=== PATIENT | female | born 1960 | race Caucasian/White ===

== ENCOUNTER → 2016-08-07 | Day surgery (SDC) | payer BC ==
[2016-07-28 07:37] VITALS: Ht 167.6 cm; Wt 131.8 kg
[~2016-08-07] VITALS: Ht 167.6 cm; Wt 131.8 kg
[~2016-08-07] MED LIST: ACET1TAB84 PO; ALBU1AER9 INH; ATEN50TA8 PO; CLB/200 PO; LIDOCAINE HCL 2% 2 ML VIAL (20MG/ML) ONE; LISI10TA PO; POTA-335 PO; PRLSR20 PO; PROPOFOL IV EMULSION 10 MG/ML 20 ML VIAL IV ONE; SODIUM CHLORIDE 0.9% 500ML 500 ML IV ONE
--- NOTE | 2016-08-07 08:21 | Endo History and Physical ---
History & Physical Date of Service: August 07, 2016. Chief Complaint: Screening Referring Physician: RASHAD Montes History of Present Illness 55 yo with below hx presenting for screening colonoscopy. No family hx Past Medical History Arthritis, Reflux, Hypertension Past Surgical History Hx Cardiac Surgery: No Hx Internal Defibrillator: No Hx Pacemaker: No Hx Abdominal Surgery: Yes (PARTIAL HYSTER, MARISEL) Hx of Implantable Prosthesis: No Hx Post-Op Nausea and Vomiting: No Hx Cancer Surgery: No Hx Thoracic Surgery: No Hx Orthopedic: Yes (RT KNEE SURGERY, LT ANKLE SURGERY WITH HARDWARE) Hx Urinary Tract Surgery: No Family History None Social History Smoking Status: Never Smoker Hx Substance Use: No Hx Alcohol Use: No Allergies Coded Allergies: Penicillins (Verified Allergy, Unknown, SHORTNESS OF BREATH, 07/28/16) Sulfa Antibiotics (Verified Allergy, Unknown, SHORTNESS OF BREATH, 07/28/16 ) Current Medications Reported Home Medications Medications Dose Route/Sig Max Daily Dose Days Date Category Tylenol Arthritis Ext Rel (Acetaminophen) 650 Mg Cplt 2 Tabs PO BID 07/28/16 Reported Prilosec (Omeprazole) 20 Mg Capcr 20 Mg PO BID 07/28/16 Reported Prinivil (Lisinopril) 10 Mg Tab 10 Mg PO QPM 07/28/16 Reported CeleBREX (Celecoxib) 200 Mg Cap 200 Mg PO QPM 07/28/16 Reported Tenormin (Atenolol) 50 Mg Tab 50 Mg PO QPM 07/28/16 Reported Micro-K Ext Rel (Potassium Chloride) 20 Meq Cap 20 Meq PO TID 04/03/14 Reported Proair Hfa (Albuterol) Aers 2 Puffs INH QID PRN 03/27/14 Reported Vital Signs Weight (Kilograms): 131.82 Height (Feet): 5 Height (Inches): 6 Date Time Temp Pulse Resp B/P Pulse Ox O2 Delivery O2 Flow Rate FiO2 08/07/16 08:02 36.6 80 20 136/90 95 Room Air Physical Exam General Appearance: WD/WN, no apparent distress Respiratory/Chest: Respiratory effort: no dyspnea Auscultation: breath sounds normal Cardiovascular: Apical Impulse: not displaced Heart Auscultation: RRR, normal S1, normal S2 Abdomen: Bowel Sounds: normal Inspection & Palpation: soft, non-distended Assessment and Plan 55 yo plan to proceed with screening colonoscopy
--- NOTE | 2016-08-07 09:10 | Discharge Instructions ---
Endoscopy Patient Instructions Date / Procedure(s) Performed August 07, 2016. Colonoscopy Allergy Information Coded Allergies: Penicillins (Verified Allergy, Unknown, SHORTNESS OF BREATH, 07/28/16) Sulfa Antibiotics (Verified Allergy, Unknown, SHORTNESS OF BREATH, 07/28/16 ) Discharge Date / Findings August 07, 2016. 3 polyps, all removed Diverticuli Internal hemorrhoids Provider Instructions Activity Restrictions - No exercising or heavy lifting for 24 hours. - Do not drink alcohol the day of the procedure. - Do not drive a car or operate machinery until the day after the procedure. - Do not make any important decisions or sign important papers in 24 hours after the procedure. Following Day: - Return to full activity which may include returning to work/school. Diet Start your diet with liquids and light foods (jello, soup, juice, toast). Then eat your usual diet if not nauseated. Treatment For Common After Affects For mild abdominal pain, bloating, or excessive gas: - Rest - Eat lightly - Lie on right side Follow-Up Information Follow-up with RASHAD Montes as scheduled Anesthesia Information What You Should Know You have had a procedure that required some medicine to reduce anxiety and discomfort. This treatment is called moderate sedation. After receiving the treatment, you may be sleepy, but you will be able to breathe on your own. The effects of the treatment may last for several hours. Follow these instructions along with Activity/Diet recommendations noted above: * Do NOT do anything where dizziness or clumsiness would be dangerous. * Rest quietly at home today, then you can be up and about tomorrow. * Have a responsible person stay with you the rest of today. * You may have had an I.V. today. If so, you may take the dressing off later today. Recommendations Call your doctor if: * Trouble breathing * Continuous vomiting for more than 24 hours * Temperature above 101 degrees * Severe abdominal pain or bloating * Pain not relieved by pain medicine ordered * There is increased drainage or redness from any incision * A large amount of rectal bleeding greater than 2-3 tablespoons. (If you had a polyp/s removed or have hemorrhoids, a small amount of blood - from the rectum is to be expected.) * You have any unanswered questions or concerns. IN THE EVENT OF A SERIOUS EMERGENCY, GO TO THE NEAREST EMERGENCY ROOM Your discharge instructions were prepared by provider Gustavo High. Patient Instructions Signature Page Amita Chandler Patient (or Guardian) Signature/Date: I have read and understand the instructions given to me by my caregivers. Caregiver/RN/Doctor Signature/Date: The above-named patient and/or guardian has received patient instructions on this date. + Original Patient Signature Page (only) stays with chart. Please make copy for patient.
--- NOTE | 2016-08-07 09:17 | GI REPORT ---
Procedure Date: 08/07/2016 8:13 AM Procedure: Colonoscopy Indications: Screening for colorectal malignant neoplasm Medicines: General Anesthesia Complications: No immediate complications. Estimated blood loss: None. Estimated Blood Loss: Estimated blood loss: none. Procedure: Pre-Anesthesia Assessment: - Pre-Anesthesia Assessment: - Prior to the procedure, a History and Physical was performed, and patient medications, allergies and sensitivities were reviewed. The patient's tolerance of previous anesthesia was reviewed. Please see Sigasi for complete details. - The risks and benefits of the procedure and the sedation options and risks were discussed with the patient. All questions were answered and informed consent was obtained. - Patient identification and proposed procedure were verified prior to the procedure by the physician and the nurse. The procedure was verified in the pre-procedure area in the procedure room. After obtaining informed consent, the endoscope was passed carefully and meticuously under direct vision and only advanced when the lumen was clearly identified, C02 insuflation was utilized throughout the entirity of the procedure. Throughout the procedure, the patient's blood pressure, pulse, and oxygen saturations were monitored continuously. After I obtained informed consent, the scope was passed under direct vision. Throughout the procedure, the patient's blood pressure, pulse, and oxygen saturations were monitored continuously. The scope was introduced through the anus and advanced to the terminal ileum, with identification of the appendiceal orifice and IC valve. After I obtained informed consent, the scope was passed under direct vision. Throughout the procedure, the patient's blood pressure, pulse, and oxygen saturations were monitored continuously.The colonoscopy was performed without difficulty. The patient tolerated the procedure well. The quality of the bowel preparation was good. Findings: A 4 mm polyp was found in the ascending colon. The polyp was sessile. The polyp was removed with a cold snare. Resection and retrieval were complete. Two sessile polyps were found in the descending colon. The polyps were 3 to 4 mm in size. These polyps were removed with a cold snare. Resection and retrieval were complete. A 4 mm polyp was found in the rectum. The polyp was sessile. The polyp was removed with a cold snare. Resection and retrieval were complete. Multiple small-mouthed diverticula were found in the sigmoid colon. Internal hemorrhoids were found during retroflexion. There was a large lipoma, in the ascending colon. The terminal ileum appeared normal. Impression: - One 4 mm polyp in the ascending colon, removed with a cold snare. Resected and retrieved. - Two 3 to 4 mm polyps in the descending colon, removed with a cold snare. Resected and retrieved. - One 4 mm polyp in the rectum, removed with a cold snare. Resected and retrieved. - Diverticulosis in the sigmoid colon. - Internal hemorrhoids. - Large lipoma in the ascending colon. - The examined portion of the ileum was normal. Recommendation: - Discharge patient to home (with escort). - Return to referring physician as previously scheduled. - Repeat colonosocpy in 3 years. Gustavo High MD 08/07/2016 9:16:23 AM This report has been signed electronically. Note Initiated On: 08/07/2016 8:13 AM I attest to the content of the Intraoperative Record and orders documented therein, exceptions below
--- NOTE | 2016-08-07 09:27 | Anesthesiology Progress Note ---
Anesthesia Post Op Note Date & Time August 07, 2016 at 09:27 Vital Signs Pain Intensity: 3 Vital Signs Past 12 Hours Date Time Temp Pulse Resp B/P Pulse Ox O2 Delivery O2 Flow Rate FiO2 08/07/16 09:08 85 20 110/79 98 Room Air 08/07/16 08:02 36.6 80 20 136/90 95 Room Air Notes Mental Status: alert / awake / arousable, participated in evaluation Pt Amnestic to Procedure: Yes Nausea / Vomiting: adequately controlled Pain: adequately controlled Airway Patency, RR, SpO2: stable & adequate BP & HR: stable & adequate Hydration State: stable & adequate Anesthetic Complications: no major complications apparent
[2016-08-07 09:38] VITALS: BP 139/78; PULSE 73; O2SAT 99
== END | disposition home or self-care (01) ==
LOC: C.GI 07:34
PROVIDERS: ATTEND Internal Medicine
DX: Z12.11 Encounter for screening for malignant neoplasm of colon (principal); D12.2 Benign neoplasm of ascending colon; D12.4 Benign neoplasm of descending colon; K62.1 Rectal polyp; K57.30 Diverticulosis of large intestine without perforation or abscess without bleeding; K64.8 Other hemorrhoids; D17.5 Benign lipomatous neoplasm of intra-abdominal organs; I10 Essential (primary) hypertension; K21.9 Gastro-esophageal reflux disease without esophagitis; M19.90 Unspecified osteoarthritis, unspecified site; Z79.899 Other long term (current) drug therapy

== ENCOUNTER 2018-08-19 07:08 | Inpatient (IN) ==
--- NOTE | 2018-08-04 14:18 | Anesthesiology Consultation ---
Date of Service August 04, 2018 Assessment & Plan (1) Encounter for pre-operative examination: Chart Review Chart Review: Acceptable Risk for Surgery and Patient NOT seen in Pre Admission Testing History Surgery Operation Date: 08/19/18 07:00 Proposed Procedures p Right Total Knee Replacement - Heri Montelongo MD Height/Weight Height: 5 ft 6 in Weight: 129.274 kg Allergies Allergy/AdvReac Type Severity Reaction Status Date / Time Penicillins Allergy Unknown SHORTNESS Verified 07/01/18 08:56 OF BREATH Sulfa (Sulfonamide Allergy Unknown SHORTNESS Verified 07/01/18 08:56 Antibiotics) OF BREATH Medications Home Medications Medication Instructions Recorded Confirmed Last Taken acetaminophen [Tylenol Arthritis 650 mg PO Q12H 07/01/18 07/01/18 Unknown Pain] lisinopril 30 mg PO QPM 07/01/18 07/01/18 Unknown omeprazole 20 mg PO BID 07/01/18 07/01/18 Unknown Past Medical History Medical History Morbid obesity Chronic back pain Hypertension Osteoarthritis Past Surgical History Surgical History History of ankle surgery LEFT - HARDWARE PRESENT History of cholecystectomy History of colonoscopy W/ POLYPECTOMY History of knee replacement LEFT History of partial hysterectomy Social History Smoking Status: Never smoker Do You Dip or Chew Tobacco: No Hx Alcohol Use: No Hx Substance Use: No substance use type: does not use Testing Electrocardiogram Date: 08/04/18 Findings: + NSR @ (76) Chest X-Ray Date: 08/04/18 Findings: + NAD Laboratory Results Blood Type O Positive 07/19/18 12:55 Antibody Screen NEGATIVE 07/19/18 12:55 07/19/18 WBC 9.31 H/H 13.7/41.3 PLATELETS 268 SODIUM 142 POTASSIUM 3.9 CHLORIDE 109 CO2 29 BUN 16 CREATININE 0.78 GLUCOSE 89 PT 9.8 PTT 27.1 INR 1.0
--- NOTE | 2018-08-13 13:50 | History and Physical Report ---
DATE OF ADMISSION: 08/19/2018 CHIEF COMPLAINT: Right knee pain. HISTORY OF PRESENT ILLNESS: A 57-year-old white female who is well known to me from previous left knee replacement, who presents for surgical treatment of her right knee. She is now almost a year out from her left knee and doing extremely well. She has had a long history of bilateral knee pain and discomfort. She had her left knee surgery almost a year ago and has done well from this. She continues to be limited by right knee pain. She has got global pain. The more she walks, the more it hurts. She has been through extensive conservative treatment by freight loader including steroid shots and viscosupplementation, which helped for just a couple days utmost. She is happy with her left knee and would like to have her right knee replaced. PAST MEDICAL HISTORY: 1. Hypertension. 2. Obesity with a BMI of 46. 3. Gastroesophageal reflux. 4. Chronic back pain/sciatica. PAST SURGICAL HISTORY: Previous surgeries include: 1. Left knee replacement on 09/03/2017. 2. Left ankle surgery 25 years ago for fracture. 3. Right knee arthroscopy. ALLERGIES: SULFA AND PENICILLIN. CURRENT MEDICINES: Include: 1. Lisinopril 30 mg a day. 2. Omeprazole 20 mg twice a day. 3. Potassium 20 mEq 3 times a day. 4. Duloxetine 60 mg a day. 5. Tylenol Arthritis. SOCIAL HISTORY: A 57-year-old female. 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 She is . Does not drink. FAMILY HISTORY: Significant for heart disease and diabetes. REVIEW OF HISTORY: Negative for diabetes, neurological problems, vascular problems, bleeding disorders. No chest pain or shortness of breath. No history of DVT or PE. No known bleeding problems. PHYSICAL EXAMINATION: GENERAL: Shows a healthy, pleasant middle-aged female. HEENT: Benign. NECK: Supple. No lymphadenopathy. LUNGS: Clear to auscultation. HEART: Regular rate and rhythm. ABDOMEN: Soft, nontender, nondistended. EXTREMITIES: Grossly neurovascularly intact except as follows: Examination of the right knee reveals the patient walks independently. She has got a fairly large soft tissue envelope. Small knee effusion. She is tender over the medial joint line. Range of motion 5-120. No instability. Examination of left knee reveals a well-healed incision. No significant swelling. Range of motion 0-120. Good straight leg raise. X-RAYS: X-rays of the right knee reviewed. Shows advanced right knee DJD. She has complete loss of medial joint space. She has osteophytes of the medial femoral condyle and medial tibial plateau. She does have some osteophytes laterally and some moderate patellofemoral disease. ASSESSMENT: A 57-year-old white female almost a year out from left knee replacement with advanced right knee degenerative joint disease. She has failed conservative treatment. She would like to proceed with right knee replacement. PLAN: We will take her to the operating room and do right total knee replacement. The risks and benefits of this procedure were explained to the patient including but not limited to DVT, PE, , infection, neurological injury, vascular injury, bleeding problem, pain, limited range of motion, stiffness, failure to relieve symptoms, incomplete relief of symptoms, need for further surgery in the future, fracture, leg length inequality, need for blood transfusion, etc. The patient understands and desires to proceed. Informed consent was obtained. We did talk about holding her lisinopril the morning of surgery. She does have this apparent penicillin reaction, so we will likely give her vancomycin preoperatively. She is going to be discharged home with [facility].
[~2018-08-19 07:08] MED LIST changes: -ACET1TAB84 PO; +ACETAMINOPHEN 500 MG TAB PO SCH; -ALBU1AER9 INH; -ATEN50TA8 PO; +BUPIVACAINE 0.5 % 5 MG/1 ML PF 10ML VIAL ONE; +BUPIVACAINE LIPOSOME/PF 266 MG, BUPIVACAINE/EPINEPHRINE 50 ML, SODIUM CHLORIDE 0.9% 30 ... INFIL SCH; +CEFAZOLIN 3000MG 65 ML IV SCH; -CLB/200 PO; +EPINEPHrine INJ 1 MG/ML AMP ONE; +FAMOTIDINE 20 MG TAB PO SCH; +GABAPENTIN 300 MG x 2 PO SCH; -LIDOCAINE HCL 2% 2 ML VIAL (20MG/ML) ONE; -LISI10TA PO; +LR 500ML BOLUS, THEN 15ML/HR IV SCH; +LR 60ML/HR IV SCH; +METOCLOPRAMIDE HCL 10 MG TABLET PO SCH; -POTA-335 PO; -PRLSR20 PO; -PROPOFOL IV EMULSION 10 MG/ML 20 ML VIAL IV ONE; +ROPIVACAINE 0.5% 5 MG/ML 30 ML VIAL ONE; +SCOPOLAMINE 1.5 MG TDSY TD SCH; -SODIUM CHLORIDE 0.9% 500ML 500 ML IV ONE; +TRANEXAMIC ACID 1,000 MG **IV Intra-op IV SCH; +VANCOMYCIN CONSULT ACTIVE PRN; +VANCOMYCIN HCL 2,000 MG in SODIUM CHLORIDE 0.9% 500 ML IV SCH
[2018-08-19] MEDS ORDERED: MIDAZOLAM HCL 1 MG/ML 2ML VIAL ONE ×2 (07:17→10:46)
[2018-08-19] MEDS ORDERED: fentaNYL citrate 100 MCG/2 ML VIAL ONE (07:17)
[2018-08-19] MEDS ORDERED: LABETALOL HCL IV 5 MG/ML 20ML IV PRN (07:38)
[2018-08-19] MEDS ORDERED: ONDANSETRON INJ 2 MG/ML 2 ML VIAL IV PRN ×2 (07:38→13:37)
[2018-08-19] MEDS ORDERED: HYDROmorphone INJ 1 MG/ML SYRINGE IV PRN (07:38)
[2018-08-19] MEDS ORDERED: PHENYLEPHRINE 100MCG/ML 5ML SYR IV PRN (07:38)
[2018-08-19] MEDS ORDERED: fentaNYL citrate 100 MCG/2 ML VIAL IV PRN (07:38)
[2018-08-19] MEDS ORDERED: ePHEDrine sulfate 50 MG/ML AMP IV PRN (07:38)
[2018-08-19] MEDS ORDERED: ATROPINE SULFATE 0.1 MG/ML 10ML SYR IV PRN (07:38)
[2018-08-19] MEDS ORDERED: BACITRACIN INJ 50,000 UNIT VIAL ONE (10:10)
[2018-08-19] MEDS ORDERED: SODIUM CHLORIDE 0.9% PF 50 ML VIAL ONE (10:10)
[2018-08-19] MEDS ORDERED: BUPIVACAINE LIPOSOME 1.3% 266 MG/20 ML VIAL ONE (10:10)
[2018-08-19] MEDS ORDERED: BUPIVACAINE 0.25% 30 ML VIAL ONE (10:11)
[2018-08-19] MEDS ORDERED: EPINEPHrine INJ 1 MG/ML AMP ONE (10:11)
--- NOTE | 2018-08-19 10:11 | History & Physical Bridge Note ---
Date of Service August 19, 2018 History & Physical Bridge Note I have examined the patient, reviewed the History & Physical and in the interval since the performance of the History & Physical I have noted the following changes of clinical significance: no changes noted
[2018-08-19] MEDS ORDERED: PROPOFOL IV EMULSION 10 MG/ML 20 ML VIAL IV ONE ×2 (11:09→11:58)
[2018-08-19] MEDS ORDERED: LIDOCAINE HCL 2% 2 ML VIAL/AMP(20MG/ML) INFIL ONE (11:13)
--- NOTE | 2018-08-19 12:20 | Post Operative Brief Note ---
Immediate Post Op Note v1 Date of Surgery August 19, 2018 Pre & Post Diagnosis Operation Date: 08/19/18 09:50 Pre-Op Diagnosis: Right Knee Degenerative Joint Disease Post-Op Diagnosis: Right Knee Degenerative Joint Disease Procedure Operation Date: 08/19/18 09:50 Actual Procedures p Right Total Knee Replacement(Right) - Hrei Montelongo MD Surgeon Heri Montelongo MD Shop Firer/Fireman Zbigniew, PAC Estimated Blood Loss 50 Findings Consistent with Post-Op Diagnosis Fluids 1600 cc Specimens Right Knee Anesthesia Type Spinal MAC Complications none Disposition Accompanied Patient To Recovery: Yes Disposition: Recovery Room
--- NOTE | 2018-08-19 13:05 | XRay Report ---
XR knee RT 2V routine CLINICAL HISTORY: Surgical Post Op COMPARISON: None. DISCUSSION: Anatomic alignment post total right knee arthroplasty. Good contact between prosthetic an d underlying bone expected soft tissue postoperative change IMPRESSION: Anatomic alignment post total right knee arthroplasty. The above report was generated using voice recognition software. It may contain grammatical, syntax or spelling errors. Electronically signed by: Will Moreno M.D. 08/19/2018 1:03 PM
--- NOTE | 2018-08-19 13:14 | Anesthesiology Progress Note ---
Date of Service August 19, 2018 Anesthesia Post Procedure Vital Signs Vital Signs: Temp Pulse Pulse Resp BP Pulse Ox 08/19/18 13:00 36.4 C L 81 19 101/70 96 08/19/18 12:50 79 17 113/67 98 08/19/18 12:40 81 21 112/73 100 08/19/18 12:30 85 17 117/69 96 08/19/18 12:22 36.0 C L 91 H 19 105/73 96 08/19/18 07:40 36.5 C 90 20 128/93 98 Pain Intensity Right Knee: Pain Intensity: 0 Transfer of Care Handoff Completed per policy Notes Mental Status: alert / awake / arousable Patient Amnestic to Procedure: Yes Nausea / Vomiting: adequately controlled Pain: adequately controlled Airway Patency, RR, SpO2: stable & adequate BP & HR: stable & adequate Hydration State: stable & adequate Neuraxial Anesthesia: was administered and sensory block is resolving Anesthetic Complications: no major complications apparent and Pt Satisfied with anesthetic care
--- NOTE | 2018-08-19 13:21 | Operative Report ---
DATE OF OPERATION: 08/19/2018 SURGEON: Heri Montelongo MD RIG BUILDER: RASHAD Curtis PREOPERATIVE DIAGNOSIS: Right knee degenerative joint disease. POSTOPERATIVE DIAGNOSIS: Right knee degenerative joint disease. PROCEDURE PERFORMED: Right cemented posterior stabilized total knee arthroplasty. COMPLICATIONS: None. ESTIMATED BLOOD LOSS: 50 mL. FLUID REPLACEMENT: 1600 mL of crystalloid fluid replacement. TOURNIQUET TIME: 50 minutes at 300 mmHg. ANESTHESIA: Spinal with adductor canal block. DRAINS: None. SPECIMENS: Right knee sent for pathology. OPERATIVE INDICATIONS: The patient is a 57-year-old female who has had a long history of bilateral knee pain and discomfort, describes it has just gotten worse over time. She has been through extensive conservative treatment which became less successful over time. She had a left knee replacement a year ago and done well from this. She would like to see a right total knee arthroplasty. OPERATIVE FINDINGS: Operative findings revealed advanced right knee DJD. She had extensive grade 4 [id number] disease of the medial and patellofemoral compartment. She had some focal grade 4 changes in the lateral compartment. Moderate size joint effusion. OPERATIVE IMPLANTS: Operative implants consisted of: 1. A Biomet Vanguard size 67.5 right posterior stabilized femoral component. 2. A Biomet size 71 tibial tray. 3. A 10 mm posterior stabilized polyethylene insert. 4. A 28 x 8 all poly patella. OPERATIVE PROCEDURE: The patient was taken to the operating room, identified, and placed on the operating table in supine position. All contact areas were appropriately padded. IV antibiotics were provided by the anesthesia team. A spinal anesthetic and adductor canal block had been provided in the holding area. Claire catheter was placed in sterile fashion. A right thigh tourniquet was then placed and the right lower extremity was then prepped and draped in usual sterile fashion. The right leg was elevated and exsanguinated with Esmarch and tourniquet was placed at 300 mmHg. An anterior approach of the right knee was then performed through a longitudinal incision centered over the patella. Sharp dissection was carried through subcutaneous tissues down to the level of the extensor mechanism. Medial parapatellar arthrotomy incision was made. Some subperiosteal dissection was carried out medially. The fat pad was resected from beneath the patellar tendon. The lateral patellofemoral ligament was released. The patella was everted and knee was flexed. The osteophytes were taken off the distal femur. The ACL and PCL were then released from the distal femur. The tibia subluxated anteriorly. The external tibial alignment jig was then placed in the anterior face of the tibia and adjusted 16 mm medially. Proximal tibial cut was made to remove about 2 millimeter of bone from the most deficient aspect of the medial tibial plateau. Some osteophytes were taken off medial and posteromedially. The tibia was sized to a size 71. Attention was then drawn to the femur. Distal femur was entered with a sharp drill bit, intramedullary canal was suctioned. A right 5-degree valgus cutting guide was placed. Distal femoral cutting block was pinned in place. Distal femoral cut was made to take an additional 3 mm of bone off the distal femur. The femur was then sized to a size 67.5. We did downsize this slightly. The AP cutting block was pinned parallel to the epicondylar axis, which was 4 degrees of external rotation. The anterior cut, anterior chamfer, posterior cut, posterior chamfer cuts were made. Box cutting guide was placed and adjusted slightly lateral and box cut was made. The knee was flexed. The remnants of the medial and lateral menisci were excised. The osteophytes were taken off the posterior aspect of the femur. A trial femoral component was placed. Tibial tray was pinned in maximum external rotation and drill and stem punch were used to create defect in proximal tibia for the tibial tray. The knee was then trialed and a 10 mm insert fit most appropriately. Attention was then drawn to the patella. The patella was cleaned of all soft tissues. Patella thickness measured 23 mm in thickness, it was cut down to 13. It was sized to a size 28 patella. Lug holes were drilled for a 28 patella. Lateral osteophyte was removed. Patella button was placed. Knee was taken through range of motion and patella tracked nicely with no thumbs test. Attention was then drawn toward placing the permanent components. All trial components were removed. A bone plug was placed in the distal femur to limit blood loss. A double batch of Palacos G cement was mixed. A Biomet [employer] size 67.5 right posterior stabilized femoral component, size 71 tibial tray, a 10 mm posterior stabilized polyethylene insert, and a 28 x 8 all poly patella then cemented in place. Knee was brought down to full extension until cement hardened. A final cement check was then performed. Pericapsular tissues were injected with a total of 100 mL of combination of 20 mL of Exparel, 30 mL of normal saline, 50 mL of 0.25% Marcaine with epinephrine. The patient did receive 1 gram of tranexamic acid. The tourniquet was then let down for final tourniquet time of 52 minutes. Hemostasis was assured using electrocautery. The extensor mechanism was then closed with a combination of #1 PDS suture and #1 Vicryl suture in a [id number] fashion. Extensor mechanism was checked and found to be intact. The subcutaneous tissues were then closed with #2 Dexon suture in a buried interrupted fashion. Skin was closed with skin clarissa. Leg was then cleaned and dried and a sterile dressing of Xeroform, 4 x 4's, sterile cast padding, Yassine bandage were applied. The patient then transferred to the recovery room in stable condition. The patient tolerated the procedure well with no complication. All needle and sponge counts were correct at the end of the operation. I attest to the content of the Intraoperative Record and any orders documented therein. Any exception s are noted below.
[2018-08-19] MEDS ORDERED: METOCLOPRAMIDE HCL INJ 5 MG/ML 2 ML VIAL IV PRN (13:37)
[2018-08-19] MEDS ORDERED: VANCOMYCIN CONSULT ACTIVE PRN (13:37)
[2018-08-19] MEDS ORDERED: BISACODYL 10 MG SUPP PR PRN (13:37)
[2018-08-19] MEDS ORDERED: MAGNESIUM HYDROXIDE SUSP 30 ML UDC PO PRN (13:37)
[2018-08-19] MEDS ORDERED: NALOXONE HCL 0.4 MG/1 ML VIAL/CARP IV PRN (13:37)
[2018-08-19] MEDS ORDERED: HYDROmorphone INJ 0.5 MG/0.5 ML SYR IV PRN (13:37)
[2018-08-19] MEDS ORDERED: ALUMINUM/MAGNESIUM SUSP 30 ML UDC PO PRN (13:37)
[2018-08-19] MEDS: OXYCODONE HCL IR 5 MG TAB (IMMEDIATE RELEASE) PO PRN (14:50)
[2018-08-19] MEDS: SODIUM CHLORIDE 0.9% 1000ML 1,000 ML IV SCH ×2 (14:50→21:10)
[2018-08-19] MEDS: CHECK SCOPOLAMINE PATCH PLACEMENT SCH ×2 (15:30→23:43)
[2018-08-19] MEDS: KETOROLAC 30 MG/ML VIAL IV SCH ×2 (15:39→21:32)
[2018-08-19] MEDS: ACETAMINOPHEN 500 MG TAB PO SCH ×2 (15:40→21:31)
[2018-08-19] MEDS: ASCORBIC ACID 500 MG TAB PO SCH (16:40)
[2018-08-19] MEDS: FERROUS GLUCONATE 324 MG TAB PO SCH (16:40)
[2018-08-19] MEDS ORDERED: TRANEXAMIC ACID 1,000 MG in 0.9 % SODIUM CHLORIDE 100 ML IV SCH (18:21)
[2018-08-19] MEDS ORDERED: DOPamine 400MG / 250ML D5W IV ONE (19:09)
[2018-08-19] MEDS ORDERED: DIAZEPAM 5 MG/ML INJ 10ML VIAL IV ONE (19:09)
[2018-08-19] MEDS ORDERED: SODIUM BICARB 8.4% INJ 50 MEQ/50 ML SYR IV ONE (19:09)
[2018-08-19] MEDS ORDERED: ATROPINE SULFATE 0.1 MG/ML 10ML SYR IV ONE (19:09)
[2018-08-19] MEDS ORDERED: VANCOMYCIN HCL 2,000 MG in SODIUM CHLORIDE 0.9% 250 ML IV SCH (20:00)
[2018-08-19] MEDS ORDERED: VANCOMYCIN HCL 2,000 MG in SODIUM CHLORIDE 0.9% 500 ML IV SCH (20:00)
[2018-08-19] MEDS ORDERED: SENNA 8.6 MG TAB PO SCH (21:00)
[2018-08-19] MEDS ORDERED: LISINOPRIL 10 MG TAB PO SCH (21:00)
[2018-08-19] MEDS: ASPIRIN 81 MG ECTAB PO SCH (21:11)
[2018-08-19] MEDS: DOCUSATE SODIUM 100 MG CAP PO SCH (21:11)
[2018-08-19] MEDS: PANTOprazole 40 MG TAB PO SCH (21:11)
[2018-08-19] MEDS: TAPENTADOL HCL ER 50 MG TABCR PO SCH (21:29)
[2018-08-20] MEDS: OXYCODONE HCL IR 5 MG TAB (IMMEDIATE RELEASE) PO PRN ×2 (01:13→07:55)
[2018-08-20] MEDS: KETOROLAC 30 MG/ML VIAL IV SCH ×2 (03:02→09:31)
[2018-08-20] MEDS: SODIUM CHLORIDE 0.9% 1000ML 1,000 ML IV SCH (03:14)
[2018-08-20] MEDS: ACETAMINOPHEN 500 MG TAB PO SCH ×2 (06:19→14:22)
[2018-08-20 07:13] LABS: Hematocrit (blood only) 36.6 % (37-47); Hemoglobin 11.9 g/dL (12.0-16.0); Mean Corpuscular Hgb Conc 32.5 g/dL (32-36); Mean Corpuscular Volume 84.7 fL (80-100); Mean Platelet Volume 11.6 fL (7.4-10.4); Platelet Count 185 K/uL (130-400); RDW Coefficient of Variation 14.2 % (11.5-14.5); RDW Standard Deviation 43.9 fL (36.4-46.3); Red Blood Count 4.32 M/uL (4.2-5.4); White Blood Count 7.28 K/uL (4.8-10.8)
[2018-08-20 07:48] LABS: BUN Creatinine Ratio 12.6 (10-20); Calcium 8.9 mg/dl (8.5-10.1); Creatinine Clr Calc Pharmacy 120.8 ml/min; Est GFR (African American) 105.2; Est GFR (Non-African American) 90.8
--- NOTE | 2018-08-20 08:26 | Anesthesiology Progress Note ---
Date of Service August 20, 2018 Anesthesia Post Procedure Vital Signs Vital Signs: Temp Pulse Pulse Resp BP Pulse Ox 08/20/18 07:21 36.8 C 86 18 124/71 97 08/20/18 03:27 37.3 C 91 H 14 112/71 93 08/19/18 22:58 37.4 C 80 16 117/79 94 08/19/18 20:26 36.9 C 81 16 136/83 94 08/19/18 16:38 36.7 C 68 16 137/86 97 08/19/18 15:23 36.6 C 79 18 135/83 95 08/19/18 14:25 86 18 122/85 98 08/19/18 14:02 85 18 125/83 97 08/19/18 13:25 36.5 C 83 18 109/77 97 08/19/18 13:15 90 19 103/70 95 08/19/18 13:00 36.4 C L 81 19 101/70 96 08/19/18 12:50 79 17 113/67 98 08/19/18 12:40 81 21 112/73 100 08/19/18 12:30 85 17 117/69 96 08/19/18 12:22 36.0 C L 91 H 19 105/73 96 Pain Intensity Right Knee: Pain Intensity: 4 Transfer of Care Handoff Completed per policy Notes Mental Status: alert / awake / arousable Patient Amnestic to Procedure: Yes Nausea / Vomiting: adequately controlled Pain: adequately controlled Airway Patency, RR, SpO2: stable & adequate BP & HR: stable & adequate Neuraxial Anesthesia: was administered and sensory block is resolving Anesthetic Complications: no major complications apparent Notes: POD #1. Doing well. No complaints. VSS
--- NOTE | 2018-08-20 08:42 | Progress Note ---
DATE: 08/20/2018 SUBJECTIVE: A 57-year-old white female postop day 1 from right knee replacement. She is doing pretty well. Functionally, she is doing well. She seems to have a little bit more pain than what she remembers from her other knee a year ago. No chest pain or shortness of breath. Not feeling dizzy or lightheaded. OBJECTIVE: VITAL SIGNS: Temperature 36.8. Vital signs stable. GENERAL: Physical examination shows a pleasant, middle-aged female. She is sitting up in bed and eating breakfast. She looks reasonably comfortable. LUNGS: Clear to auscultation. HEART: Regular rate and rhythm. ABDOMEN: Soft, nontender, nondistended. EXTREMITIES: Grossly neurovascularly intact except as follows: Examination of the right lower extremity reveals the dressing to be clean, dry and intact. Leg is well aligned. She can dorsiflex and plantarflex her foot appropriately. She is neurologically intact. LABORATORY DATA: Hemoglobin 11.9, Hematocrit 36.6. Vital signs are stable. ASSESSMENT: A 57-year-old white female postop day 1 from right knee replacement, doing reasonably well. Seems to be a little bit more painful than what she remembers from the other side, but certainly not out of the ordinary. She is neurologically intact. PLAN: 1. DVT prophylaxis including thigh-high TEDs, SCDs, and aspirin twice a day. 2. PT/OT. Weight bear as tolerated. Right total knee protocol. 3. Pain control, doing pretty well with current pain regimen. 4. Disposition: She is hoping to be discharged to home likely with some home health once adequately recovered.
[2018-08-20] MEDS ORDERED: MULTIVITAMIN TAB PO SCH (09:00)
[2018-08-20] MEDS: ASCORBIC ACID 500 MG TAB PO SCH (09:30)
[2018-08-20] MEDS: DOCUSATE SODIUM 100 MG CAP PO SCH (09:30)
[2018-08-20] MEDS: PANTOprazole 40 MG TAB PO SCH (09:30)
[2018-08-20] MEDS: TAPENTADOL HCL ER 50 MG TABCR PO SCH (09:30)
[2018-08-20] MEDS: FERROUS GLUCONATE 324 MG TAB PO SCH (09:31)
[2018-08-20] MEDS: ASPIRIN 81 MG ECTAB PO SCH (09:31)
[2018-08-20] MEDS ORDERED: MoRPHine SULFATE 2 MG/ML CARP IV STA (15:46)
[2018-08-20] MEDS ORDERED: MoRPHine SULFATE 2 MG/ML CARP ONE (15:47)
[2018-08-20] MEDS ORDERED: RAPID SEQUENCE INDUCTION BAG ONE (15:49)
[2018-08-20] MEDS ORDERED: ALTEPLASE, RECOMBINANT 100 MG VIAL IV STA ×2 (15:55→16:24)
[2018-08-20 16:13] LABS: Basophils # (auto) 0.04 K/uL (0-0.2); Basophils % (auto) 0.2 %; Eosinophils # (auto) 0.04 K/uL (0-0.5); Eosinophils % (auto) 0.2 %; Hematocrit (blood only) 36.4 % (37-47); Hemoglobin 11.8 g/dL (12.0-16.0); Immature Granulocytes # (auto) 0.23 K/uL (0.00-0.02); Immature Granulocytes % (auto) 1.3 %; Lymphocytes # (auto) 4.74 K/uL (1.2-3.4); Lymphocytes % (auto) 27.2 %; Mean Corpuscular Hgb Conc 32.4 g/dL (32-36); Mean Corpuscular Volume 86.1 fL (80-100); Mean Platelet Volume 12.1 fL (7.4-10.4); Monocytes # (auto) 2.33 K/uL (0.11-0.59); Monocytes % (auto) 13.4 %; Neutrophils # (auto) 10.06 K/uL (1.4-6.5); Neutrophils % (auto) 57.7 %; Platelet Count 189 K/uL (130-400); RDW Coefficient of Variation 14.6 % (11.5-14.5); Red Blood Count 4.23 M/uL (4.2-5.4); White Blood Count 17.44 K/uL (4.8-10.8)
[2018-08-20] MEDS ORDERED: EPINEPHrine 4 MG in DEXTROSE 5% HYPOTENSION IV SCH (16:15)
[2018-08-20 16:31] LABS: BUN Creatinine Ratio 9.9 (10-20); Calcium 8.9 mg/dl (8.5-10.1); Creatinine Clr Calc Pharmacy 76.7 ml/min; Est GFR (African American) 60.7; Est GFR (Non-African American) 52.4
[2018-08-20 16:32] LABS: Potassium 3.2 mmol/L (3.5-5.1)
[2018-08-20 16:38] LABS: Troponin I 1.68 ng/ml (0-0.045)
--- NOTE | 2018-08-20 17:16 | Critical Care Consultation ---
Date of Consultation August 20, 2018 Assessment & Plan (1) Cardiac arrest: Impression: 1. Cardiac arrest, failure to return of [place] rhythm, 49 minutes code, received ACLS protocol, TPA for tentative diagnosis of PE given her symptoms that came out very quickly and resulted in a "instantaneously, bronchoscopy was done to control hemoptysis during chest compression. 2. Postop day 1 total knee replacement. Plan: 1. Despite all the efforts to restore the rhythm in this patient, sadly and unfortunately, the the heart did not start again after 49 minutes of efforts. The patient become pulseless within 3 minutes of arrival to the bedside, her symptoms of acute respiratory failure and cardiac arrest were sudden, the patient was intubated with #7-1/2 ET tube, using glide scope, end-tidal was yellow, secured with tube cade. 2. Bronchoscopy was done at the bedside due to gross hemoptysis during the chest compression. After receiving TPA. Epinephrine and cold saline was used, and the bleeding was from the right lower lobe. Controlled. 3. Intubation was done during the code, using a glide scope, no induction was used. 4. Discussed with the who was at the bedside, suggested autopsy, he would think about it. 5. After the above efforts, the patient was pronounced at 16:39 PM after 49 minutes of code. 6. The was at the bedside, consulted with the prior to stopping the code and they are in agreement. 7. Recommended autopsy. Critical care time spent with the patient was 60 minutes. History of Present Illness Reason for Consultation: Cardiac arrest Requesting Physician: Dr. Montelongo Attending Physician: Heri Montelongo MD History of Present Illness Dear Dr. Montelongo: Thank you for the kind referral Mrs. Chandler, this is 57-year-old female with a history of hypertension, GERD, underwent total knee replacement on the right side on 08/19/2018, which went uneventful, patient was admitted to the walker for further management. At 3:45, kimberly freeman was called on the patient, we arrived at the bedside, the patient was diaphoretic, cyanotic, stating she cannot breathe, she is feeling hot, she is requiring 15 L of oxygen, O2 saturation was reported to be 90%. The patient denies any pain but she does not feel she can breathe at all. The patient was already hooked to a monitor showing sinus tachycardia, her blood pressure at that point was low, orders for ABG, chest x- ray, and 2 mg of morphine were given, her physical exam at that time revealed tachycardia, respiratory distress, respiratory rate of 30, O2 saturation is 91% on 15 L, S1-S2 tachycardic, distant breath sounds due to body habitus, it was difficult to auscultate effectively, morbid obesity, abdomen is soft, libido reticularis, right knee was wrapped surgically. Cyanosis noted also in the digit and she is cold and clammy in the periphery. The patient appears to be heading toward shock. As we were preparing also for the above interventions, the patient become unresponsive and lost her pulse. Her rhythm appeared to be PEA arrest. The pa tient immediately was placed in supine position and CPR started. The patient switch from facemask to ambo bagging and intubated with a glide scope using 7- 1/2 ET tube. Confirmed with end-tidal CO2. The patient did have 2 IVs and 1 of them was lost. I/O was placed by Dr. Valdez in the left tibial area and then another IO was placed in the right shoulder humerus area. The code run according to ACLS protocol, the patient received multiple doses of epinephrine every to 3 minutes, due to frequent bradycardia also she received multiple doses of atropine. At the time when the patient did have lack of IV access, the ET tube was used to inject epinephrine and atropine. The patient continued to be pulseless after 10 minutes of the code. Due to high suspicion for pulmonary embolism in this patient, the patient was injected with 50 mg TPA x2 doses, and started on epinephrine drip and dopamine drip. The patient continued to have pulseless rhythm with PEA. Bicarb was given as well. The patient does not have any cardiac history and she does not have history of renal failure. The patient started also on IV fluid for support. The patient developed gross hemoptysis during chest compression. A bronchoscopy was called to the bedside. Using the bronchoscope, it was noted that the ET tube is 3 cm above the suresh, and the bleeding was coming out from the right main bronchus. Injected with 3 aliquots of epinephrine 3 minutes apart. Also atropine was injected as well. Cold saline was injected to provide hemostasis as well. Chest compression continued uninterrupted throughout the entire procedure. The family were at the bedside, after extensive efforts to restore ROSC the patient continued to be pulseless without any blood pressure. At that time her exam showed widely dilated fixed pupils. Remains cyanotic. Unresponsive to tactile. In discussion with her who was at the bedside, it was advised that after 49 minutes of CPR without return to sinus rhythm it would be futile. The agreed to withhold efforts and no further CPR to be administered. CPR was aborted, and the patient was pronounced at 16:39 PM. The team contacted Dr. Montelongo to notify him. In discussion with the , he was going the other family members, suggested autopsy, he is awaiting for his youngest daughter to arrive to make that decision. Appreciate the assistance of all the medical providers, nursing staff, respiratory therapist, CPR technicians and pharmacy staff in this prolonged code. Allergies Allergy/AdvReac Type Severity Reaction Status Date / Time Penicillins Allergy Unknown SHORTNESS Verified 08/19/18 07:35 OF BREATH Sulfa (Sulfonamide Allergy Unknown SHORTNESS Verified 08/19/18 07:35 Antibiotics) OF BREATH Home Medications Home Medications Medication Instructions Recorded Confirmed Type acetaminophen [Tylenol Arthritis 650 mg PO Q12H 07/01/18 08/19/18 History Pain] lisinopril 30 mg PO QPM 07/01/18 08/19/18 History omeprazole 20 mg PO BID 07/01/18 08/19/18 History Patient History Medical History Chronic back pain Hypertension Morbid obesity Osteoarthritis Surgical History History of ankle surgery LEFT - HARDWARE PRESENT History of cholecystectomy History of colonoscopy W/ POLYPECTOMY History of partial hysterectomy History of knee replacement LEFT Family History Grandmother (Maternal) Family history of diabetes mellitus Mother Family history of diabetes mellitus Grandfather (Maternal) Family hx of colon cancer Social History Preferred Language: [place]ian Communication Ability: Effective 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 Requiring immediate intubation. Review of system otherwise were limited due to the above. Physical Exam Physical Exam: Prior to the code, the patient blood pressure was soft with systolic less than 90, heart rate was 130 normal sinus rhythm, tachycardia, cyanotic, tachypneic with respiratory rate of 30, O2 saturation is 91% on 15 L via oxygen mask, no JVD, S1-S2, difficult to auscultate the lungs due to body habitus, abdomen is soft, livedo reticularis was noted in the periphery, right leg is surgically wrapped post total knee replacement. Neurologically patient is lethargic and severely short of breath to answer questions. Results & Data Vital Signs (Past 12 Hours) Vital Signs Temp Pulse Resp BP Pulse Ox 08/20/18 15:03 37.8 C H 111 H 18 121/85 96 08/20/18 14:35 144/84 H 92 08/20/18 14:30 120 H 80 L 08/20/18 10:42 37.1 C 102 H 18 123/77 91 08/20/18 07:21 36.8 C 86 18 124/71 97 Laboratory Results Labs from today reviewed which showed slightly low potassium at 3.2, stable hematocrit, leukocytosis, BUN and creatinine slightly elevated, positive troponin at 1.6. Diagnostic Findings The patient did not even have a chance to have a chest x-ray, formal EKG, she went into a code and cardiac arrest within 3 minutes from evaluation.
[2018-08-20 17:58] LABS: D Dimer 6510 ug/L FEU (0-500)
--- NOTE | 2018-08-26 00:12 | Discharge Summary ---
ADMISSION DIAGNOSIS: Severe right knee degenerative joint disease. SECONDARY DIAGNOSES: 1. Hypertension. 2. Gastroesophageal reflux disease. 3. Morbid obesity with a BMI of 46. 4. Sciatica. PROCEDURE PERFORMED: On 08/19/2018, a right cemented posterior stabilized total knee arthroplasty. DISCHARGE DISPOSITION: . HISTORY OF PRESENT ILLESS: The patient is a 57-year-old female who has had a long history of knee problems. She underwent a left knee replacement about a year prior to admission. She had continued to be bothered by right knee pain and was indicated for a right total knee arthroplasty. HOSPITAL COURSE: The patient was admitted to the hospital on 08/19/2018. She underwent an uneventful right cemented posterior stabilized total knee arthroplasty. She was admitted to the floor postoperatively and continued on 24 hours of prophylactic IV antibiotics. She was also started on DVT prophylaxis including thigh-high TEDs, SCDs, and a baby aspirin twice a day. She was started on nurse-directed therapy upon arrival to the floor and formal physical therapy the following morning. The patient was doing well until about the mid afternoon on 08/20/2018. At about 3:30, she got up to take a walk in the hallway and got significantly short of breath. She was not having any chest pain or other discomfort but severely short of breath. She was evaluated appropriately by the nursing staff and found to have a very low oxygen saturation and significant tachycardia. Over the next several minutes, the patient developed significantly progressive shortness of breath and a code blue was called. The critical care unit was summoned and took over the code. The details of the code are well documented in the clinic note by Dr. Chandana Anguiano. Unfortunately, after 49 minutes of ACLS/CPR, the patient from a cardiopulmonary arrest. It was proposed that she likely had a fairly massive pulmonary embolism which would account for the events. To my knowledge, there was no autopsy performed.
--- NOTE | 2018-08-26 07:16 | Coding Query ---
CODING QUERY To promote full compliance with coding requirements relating to patient care, provider participation is requested in all cases of certified coder uncertainty. Please assist us with the question(s) below: Coding Question(s): There is Cardiac Arrest, Pulmonary Embolism and Acute Respiratory Failure documented on the 08/20/18 Consultation. Please clarify below, in your clinical opinion regarding each diagnosis to determine correct coding. 1. Cardiac Arrest - Please specify the likely etiology ( ) Cardiac Arrest - Postprocedural Complication ( x ) Cardiac Arrest - due to Pulmonary Embolism - Postprocedural Complication ( ) Cardiac Arrest - due to Pulmonary Embolism - Not a Postprocedural Complication ( ) Cardiac Arrest - Unknown etiology ( ) Cardiac Arrest - Other etiology: Please Specify 2. Pulmonary Embolism ( x ) Postprocedural Complication ( ) Pulmonary Embolism - Not a Postprocedural Complication 3. Acute Respiratory Failure (x ) Postprocedural Complication ( ) Not a Postprocedural Complication Physician's Response(s): Thank you Pushpa Gentile Principal Diagnosis: "that condition established after study, to be chiefly responsible for occasioning the admission of the patient to the hospital for care." Co-Existing Principal Diagnosis: "when two or more diagnoses equally meet the criteria for principal diagnosis as determined by the circumstances of admission, diagnostic work up, and/or therapy provided, and the Alphabetic Index, Tabular List, or another coding guideline does not provide sequencing direction, any one of the diagnoses may be sequenced first." "When the physician has documented what appears to be a current diagnosis in the body of the record, but has not included the diagnosis in the final diagnostic statement, the physician should be asked whether the diagnosis should be added." ([facility] 2 QTR90. p3-4) JULIA
== END 2018-08-20 19:10 | disposition expired | DRG 469 ==
LOC: ASU 07:08 → 3E 12:25